=== PATIENT | female | born 1935 | race Caucasian/White ===

== ENCOUNTER 2017-07-31 13:05 | Day surgery (SDC) | payer MEDICARE, BC ==
[~2017-07-31] VITALS: Ht 160 cm; Wt 72.7 kg
--- NOTE | ~2017-07-31 | OP ---
PATIENT NAME: FABIOLA FU MEDICAL RECORD: [id number] :33 LOCATION:[facility] ADMISSION DATE: SURGEON: ADAMARIS GURROLA MD DATE OF OPERATION: 07/31/2017 PROCEDURE: Colonoscopy with polyp ablation in the rectum, colonoscopy with biopsy. SCOPE: [employer] video colonoscope. MEDICATIONS: The medications given were per TIVA anesthesia. The patient received 160 mg of propofol for this procedure, O2 at 4 liters. INDICATION FOR THE PROCEDURE: Change in bowel pattern with constipation. FINDINGS: Informed consent was given. The patient was made comfortable with the above medications. After reaching an adequate level of sedation by slow IV push, the patient was placed on her left side. The rectal exam revealed good sphincter tone. No fissures or fistulas were appreciated. No external skin tags were seen. The colonoscope was advanced to the cecum, where the ileocecal valve and appendiceal orifice were identified. The scope was then withdrawn. On withdrawal of the scope, the patient was noted to have pandiverticulosis without diverticulitis. In the sigmoid colon, an area of inflammation with some erythema and edema was appreciated and biopsies were obtained. The scope was then withdrawn to the rectum and within the rectal vault, a few polyps, benign in appearance, were seen near the distal rectal area along with the anal verge and these were treated with polyp ablation. The tissue was not pulled for identification due to the location of the polyp lesions. On retroflexion and final withdrawal of the scope, hemorrhoids were seen. IMPRESSION: 1. Cecum and IC valve identified as well as the appendiceal orifice and normal. 2. Pandiverticulosis without diverticulitis. 3. Area of mild colitis in a localized area of the sigmoid area, biopsy obtained. 4. Multiple small benign-appearing distal rectal polyps ablated. 5. Mild internal hemorrhoids. PLAN: 1. No aspirin or anti-inflammatory drugs if possible for 14 days. 2. High-fiber diet. 3. The patient should follow constipation avoidance instructions to include fluid, fiber, stool softeners, and either milk of magnesia, mineral oil, or MiraLax p.r.n. 4. Probiotics. TRANSINT:[id number] Voice Confirmation ID: [id number] DOCUMENT ID: [id number] OPERATIVE REPORT [id number] FABIOLA FU ADAMARIS GURROLA MD CC: AXEL WU [id number] DICTATION DATE: 07/31/17 1547 [facility]TER: 07/31/17 1816 [facility] 07/31/17 [address] [id number] [place] [address]
[~2017-07-31 13:05] MED LIST: ALENDRONATE SOD10 MG PO; CHILDREN'S ASPI81 MG PO; HYDROCODONE-APA1 TAB PO; LIPITOR10 MG PO; METAMUCIL1042 GM PO; VIACTIV SOFT C1 EACH PO; ZOFRAN4 MG PO
[2017-07-31 14:17] VITALS: BP 156/80; Ht 160 cm; Wt 72.7 kg
[2017-07-31 14:36] LABS: BASOPHILS 0.2 % (0-2); EOSINOPHILS 1.3 % (0-7); HEMATOCRIT 42.2 % (36.0-48.0); HEMOGLOBIN 14.9 g/dL (12-16); IMMATURE GRANULOCYTES 0.2 % (0-5); LYMPHOCYTES 30.1 % (15-50); MCH 32.7 pg (26.0-34.0); MCHC 35.3 g/dL (31.0-37.0); MCV 92.7 fL (80.0-100.0); MONOCYTES 8.9 % (2-11); NEUTROPHILS 59.3 % (40-80); PLATELET COUNT 222 10x3/uL (130-400); RBC 4.55 10x6/uL (4.00-5.40); RDW 12.8 % (11.5-14.5); WBC 6.4 10x3/uL (4.8-10.8)
[2017-07-31 14:51] LABS: CALC OSMOLALITY 267 mosm/kg (275-300); CALCIUM 9.1 mg/dL (8.5-10.1); CARBON DIOXIDE 24.5 mmol/L (21.0-32.0); CHLORIDE - SERUM 100 mmol/L (98-107); CREATININE - SERUM 0.7 mg/dL (0.6-1.3); GLUCOSE 88 mg/dL (74-106); POTASSIUM - SERUM 3.9 mmol/L (3.5-5.1); SODIUM 136 mmol/L (136-145); UREA NITROGEN 5 mg/dL (7-18); eGFR NON AFRICAN AMERICAN 85 mL/min (90-120)
== END 2017-07-31 16:29 | disposition home or self-care (01) ==
LOC: D.OPS 13:05
PROVIDERS: Anesthesiology
DX: K57.30 Diverticulosis of large intestine without perforation or abscess without bleeding (principal); K52.9 Noninfective gastroenteritis and colitis, unspecified; K62.1 Rectal polyp; K64.8 Other hemorrhoids; K59.00 Constipation, unspecified; Z01.812 Encounter for preprocedural laboratory examination